=== PATIENT | female | born 1975 ===

== ENCOUNTER 2025-03-03 14:59 | Emergency (ER) | payer SELFPAY ==
[2025-03-03 15:00] VITALS: BP 156/96; PULSE 129; RESP 16; TEMP 36.5; O2SAT 100
--- NOTE | 2025-03-03 15:03 | PC.NURSE ---
pt and family given folder and educated on how there is a pamphlet in the folder that explains the ER process, a survey, and resources. ice pack provided for pt comfort
--- NOTE | 2025-03-03 15:18 | PC.NURSE ---
Pt given cold wet rag per visitors request.
--- NOTE | 2025-03-03 15:29 | PC.NURSE ---
Pts visitor ambulates to intake desk demanding a wait time. Visitor was educated that we cannot give wait times. Pts visitor states, this is an emergency, she could have a broken rib. Pts visitor then asked if she was the next to go back, visitor was educated that patients are seen based on acuity. Pts visitor then stated she would call an ambulance to pick the pt up and take her to another hospital.
--- NOTE | 2025-03-03 15:45 | PC.NURSE ---
Pt seen exiting ER waiting room with steady gait. Pt followed out by RN due to pt having an IV in arm. IV was removed intact, WNL. RN and rn discharge talked to pt per pt request. pt ambulatory out of the ER with steady gait.
--- NOTE | 2025-03-03 15:50 | PC.NURSE ---
called to ER vestibule - pt standing in vestibule complaining of her left side hurting severely. 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 Pt states you cannot say that all these people who went in front of me were worse than me. Attempted to explain again to pt that there are 2 sides to the ER and she needed the monitored side due to her extreme pain and needing pain medications. Pt states again that she was not triaged and EMS triaged her and she should have a room and or a person should have seen her in the [facility] and gave her pain medications. Pt's respirations were even and unlabored during her time ranting to staff about her issues with the ER. Pt ambulated out of the ER with a steady gait to an awaiting car.
== END 2025-03-03 16:10 | disposition left against medical advice (07) ==
DX: R07.89 Other chest pain (principal)
CPT/HCPCS: 99199